=== PATIENT | male | born 1970 | race Caucasian/White ===

== ENCOUNTER 2023-03-15 09:15 | Emergency (ER) | payer BC, OTHER, SELFPAY ==
[2023-03-15 09:17] VITALS: BP 148/98; PULSE 77; RESP 20; TEMP 36.4; O2SAT 97; BMI 24.3
--- NOTE | 2023-03-15 09:27 | VDLE_ITS ---
Reason For Study: Pain RIGHT LEFT CFV is compressible, spontaneous, competent GSV is normal. and demonstrates pulsatile venous flow. CFV is compressible, spontaneous, competent, Procedure and demonstrates pulsatile venous flow. This is a venous duplex using B-mode, color FV is compressible, spontaneous, phasic, flow and spectral Doppler. competent and demonstrates normal Exam performed portable in ED. augmentation. A preliminary report was called and/or faxed POP V is compressible, spontaneous, phasic, to Dr. De Leon. competent and demonstrates normal augmentation. T/P Trunk is compressible. PTV is compressible. LT PerV is compressible. VL/Venous Duplex US, Unilateral Interpretation Summary There is no evidence of left lower extremity deep vein thrombosis. Left great s aphenous vein appears patent and compressible segmentally. Patent and compressible right common femor al vein Pulsatile venous flow was noted bilaterally consistent with proximal venous hyp ertension or obstruction. Clinical correlation would be appropriate. Ordering Physician: Maico De Leon Performed By: Gwendolyn Quan RVT
--- NOTE | 2023-03-15 09:27 | EKG12_ITS ---
Test Reason : Blood Pressure : / mmHG Vent. Rate : 074 BPM Atrial Rate : 074 BPM P-R Int : 174 ms QRS Dur : 086 ms QT Int : 350 ms P-R-T Axes : 069 041 070 degrees QTc Int : 388 ms Normal sinus rhythm with sinus arrhythmia Normal ECG Confirmed by DICKSON NGUYEN, MACRINA ([id number]), staff editor [place] GALVAN ([id number]) on 03/18/2023 11:03:00 AM Referred By: Maico De Leon Confirmed By:MACRINA FORMAN MD
--- NOTE | 2023-03-15 09:29 | ED.VIS.CHEST ---
HPI History of Present Illness Chief Complaint: Chest Pain Detail of Chief Complaint: Palpitations accelerated heart rate. Really no chest pain. Informant: patient Onset/Context/Timing Onset: Today and Hours Activity at onset: sudden Timing: Intermittent Current Severity: Gone Maximum Severity: Mild Narrative Narrative: 52-year-old history of high cholesterol. Prior kidney stones. States for the last month he has had proximal medial left thigh and hamstring discomfort. He is never had a DVT or PE. There is no swelling. 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 He also recently drove to and from [place] within the last month. He denies any chest pain. Today said he was at work and he felt palpitations and accelerated heart rate was not feeling well came in to get evaluated. States never had any cardiac history. He is not treated for hypertension. Prior Similar Symptoms: No Recent Illness/Hospitalization: No CVD Risk Factors: Positive for Hypercholesterolemia; Negative for Hypertension, Diabetes, Family History 1' </=55 or Smoking PE Risk Factors: Positive for Recent Travel/Surgery; Negative for Recent Immobilization, Prior DVT or PE, Cancer or OCP + Smoking + >/=35 TAD Risk Factors: Negative for Marfan's Syndrome PFSH PFSH Medical History no medical history Social History Smoking Status: Unknown if ever smoked ROS ROS ED ROS Narrative Denies recent illness. Review of Systems ROS Unobtainable: Denies due to encephalopathy Constitutional Constitutional ED: Denies chills or fever(s) Eyes Eyes: Reports none ENT ENT ED: Denies ear pain Cardiovascular Cardiovascular: Reports as per HPI, palpitations and racing heartbeat; Denies chest pain Respiratory/Chest Respiratory/Chest: Denies cough or dyspnea Gastrointestinal Gastrointestinal: Denies abdominal pain, constipation, diarrhea, melena, nausea or vomiting Genitourinary Genitourinary ED: Denies dysuria or hematuria Musculoskeletal Musculoskeletal: Denies arthralgias Integumentary Denies abscess Neurologic Neurologic: Denies headache(s) Psychiatric Psychiatric: Denies anxiety or depression Endocrine Endocrinology: Denies cold intolerance Hematologic/Lymphatic Hematologic/Lymphatic: Denies easy bleeding Allergic/Immunologic Allergic/Immunologic ED: Denies mouth swelling EXAM Physical Exam Narrative Exam Narrative: 52-year-old male no acute distress. Vital signs stable afebrile. Pulse ox 97% on room air no signs hypoxia. H EENT exam unremarkable. Neck nontender no JVD. Lungs clear to auscultation bilaterally. Heart regular rate and rhythm rate about 75 no murmur. Chest wall nontender. Abdomen soft nontender. Back nontender. Moving all 4 extremities. Calves are nontender without edema or cords. Normal DP pulse. His left medial thigh and hamstring there is no tenderness. No swelling. No redness. No cord. No inguinal lymphadenopathy. Normal range of motion of the hip and knee and ankle. Neurologically is awake alert with no focal motor deficits. Const Vital Signs: 03/15/23 09:17 03/15/23 09:37 Temperature 97.6 F L Temperature Source Temporal Pulse Rate 77 Respiratory Rate 20 H Blood Pressure 148/98 H Blood Pressure Mean 114 Pulse Ox 97 Oxygen Delivery Method Room Air Room Air Positive well nourished and well developed; Negative for obese, cachectic, contractures or unkempt General Appearance ED: well developed and NAD; Negative for unkempt, cachectic, contractures or pallor Nutritional Appearance: Negative for cachectic or obese HEENT Reports moist mucous membranes normocephalic and atraumatic; Negative for trauma or tenderness Eyes PERRL and EOMs intact bilaterally General Eye ED: Negative for pale conjunctiva or scleral icterus Neck no lymphadenopathy, supple and no JVD General: Negative for tenderness Chest Wall inspection of chest normal and palpation of chest normal Chest: Negative for tenderness Resp normal respiratory effort and clear to auscultation bilaterally Effort and Inspection: Negative for respiratory distress Auscultation: Negative for rales, rhonchi or wheezes Cardio regular rate, regular rhythm, S1 normal heart sound, S2 normal heart sound and no murmurs Rate: Negative for bradycardia or tachycardic Rhythm: Negative for abnormal rhythm Peripheral Pulses: pulses 2+ throughout GI normal to inspection, nondistended, normoactive bowel sounds, soft to palpation, non-tender, non-distended and no masses Auscultation: Negative for hyperactive bowel sounds Palpation: Negative for splenomegaly Back/Spine no CVA tenderness and no thoracic nor lumbar tenderness General Back: Negative for CVA tenderness Cervical Spine: Negative for cervical spine tenderness Extremity normal to inspection General Extremety ED: Negative for edema, pulses abnormal or tenderness General Extremity: Negative for edema or pulses abnormal Neuro oriented x3, CN's II-XII intact bilaterally and no sensory deficits noted Sensorium / Orientation: awake, alert, oriented to person, oriented to place and oriented to time; Negative for confused or lethargic Motor Exam: strength 5/5 throughout Psych Appearance: Negative for unkempt Attitude: No agitated Mood & Affect: Negative for depressed, anxious or tearful Skin no rashes or lesions noted and no wounds General Skin Exam: Negative for jaundice, pallor or other Rashes: No rashes noted Trauma: Negative for abrasion or laceration MDM MDM MDM Narrative Medical decision making narrative: 52-year-old male recent travel and left proximal thigh and hamstring pain. Undergo cardiac work-up clinically told it is cardiac. Also a ultrasound of his left leg to make sure he did not have a DVT. He has had recent travel to and from [place]. His exam is completely benign. The leg is nontender without any signs of infection or blood clot. Repeat exam patient doing well at 10:21 AM. We went over his test results. Exam unchanged. Heart and lungs are clear. He feels good. We discharged home with outpatient follow-up. History & Record Review Discussion w/independent historian: Patient Additional record(s) reviewed:: No prior records Lab Data Attestation: I reviewed the patient's lab results. Lab results narrative: CBC unremarkable. White count of 5. H&H 15 and 46. Platelets 215. Chest x-ray normal. Chemistry is unremarkable gap of 2. Normal BUN and creatinine. Glucose 125. Troponin normal at 4. TSH normal 3.1. D-dimer is negative at 0.4. Venous study of his leg was negative no DVT. Labs: Laboratory Results - last 24 hr 03/15/23 03/15/23 03/15/23 09:15 09:15 09:15 WBC 5.0 RBC 5.52 Hgb 15.7 Hct 46.1 MCV 83.5 MCH 28.4 MCHC 34.1 RDW Std Deviation 36.8 RDW Coeff of Pippa 12.1 Plt Count 215 MPV 9.4 Immature Gran % (Auto) 0.200 Neut % (Auto) 58.5 Lymph % (Auto) 30.4 Mcdonald % (Auto) 6.7 Eos % (Auto) 3.4 Baso % (Auto) 0.8 Absolute Neuts (auto) 2.9 Absolute Lymphs (auto) 1.51 Nucleated RBC % 0 D-Dimer Quant (PE/DVT) 0.40 Sodium 138 Potassium 3.9 Chloride 107 Carbon Dioxide 29.0 Anion Gap 2 L BUN 15 Creatinine 0.98 Estim Creat Clear Calc 84.31 Est GFR (MDRD) Af Amer 104 Est GFR (MDRD) Non-Af 86 BUN/Creatinine Ratio 15.3 Glucose 125 H Calcium 9.5 Troponin I High Sens 4 TSH 3.10 Radiography Chest X-Ray - ED: 1 View, Read by ED Physician, Normal, Heart, Lungs, Mediastinum, Bony Structures, No Acute Disease and Chronic Changes Diagnostic Testing: Clinical Impression(s) from Imaging Studies Chest X-Ray 03/15/23 09:40 IMPRESSION: Normal x-ray examination of the chest. Electronically Signed: Juan Jose Parra MD at 10:05 EDT , Chest x-ray, portable, single view, interpreted by myself shows no acute abnormality. Normal cardiac silhouette. Normal lung robison. Normal mediastinum. Interpreted also by the radiologist who agrees. Rhythm Strip Rhythm Strip: Sinus Rhythm Rate: 74 Ectopy: None EKG Initial EKG: Attestation: I personally reviewed and interpreted this EKG as follows: Interpretation: Sinus Rhythm and No Acute Injury Pattern Comments: Normal sinus rhythm rate of 74 no acute signs of ID or ischemia. Discharge Plan Triage Chief Complaint: Chest Pain ED Provider: Maico De Leon Dx/Rx/DC Orders Clinical Impression: Palpitations Instructions: ED Palpitations Primary Care Provider: LE HERRERA Referrals: LE HERRERA [Other] Activity Restrictions/Additional Instructions: Labs including blood count, electrolytes, kidney function, blood sugar, thyroid test, heart enzyme and blood clot test were all normal. Your chest x-ray and EKG were normal. The ultrasound of your left leg was normal and showed no blood clot. Follow-up with your primary care physician as needed. Disposition Disposition: Home, Self Care
[2023-03-15 09:37] LABS: Absolute Lymphocyte Count 1.51 X10^3/uL (0.83-4.51); Absolute Neutrophil Count 2.9 X10^3/uL (2.0-7.7); Basophil# 0.04 X10^3/uL; Basophil% 0.8 % (0-1); Eosinophil# 0.17 X10^3/uL; Eosinophils% 3.4 % (0-5); Hematocrit 46.1 % (40-54); Hemoglobin 15.7 g/dL (13.0-16.5); Lymphocyte # 1.51 X10^3/ul (0.83-4.51); Lymphocyte % 30.4 % (19-41); Mean Corp Hgb Conc 34.1 g/dL (32-36); Mean Corpuscular Hgb 28.4 pg (27.0-32.0); Mean Corpuscular Volume 83.5 fL (80-94); Mean Platelet Vol. 9.4 fl (6.2-12.0); Monocyte# 0.33 X10^3/uL; Monocyte% 6.7 % (0-10); NRBC Flagged by Analyzer 0 % (0-5); Neutrophil % 58.5 % (47-70); Platelet Count 215 K/mm3 (150-450); RBC Distribution Width CV 12.1 % (11.6-14.6); RBC Distribution Width SD 36.8 fl (35.1-43.9); Red Blood Count 5.52 M/mm3 (4.6-6.2)
--- NOTE | 2023-03-15 09:40 | RAD_ITS ---
STUDY: X-RAY CHEST REASON FOR EXAM: Male, 52 years old. There are no and left arm pain. TECHNIQUE: Single AP portable view of the chest. COMPARISON: None. FINDINGS: EKG electrodes are seen. The lungs are clear and expanded. There is no demonstrated pleural abnormality. Normal size heart. Normal mediastinum and park. Normal visualized pulmonary arteries. Normal visualized aortic arch and descending thoracic aorta. Normal visualized thoracic spine. Normal visualized ribs, clavicles, and shoulders. There is no demonstrated abnormality of the visualized soft tissue structures of the upper abdomen. RAD/Chest 1 View (Portable) IMPRESSION: Normal x-ray examination of the chest. Electronically Signed: Juan Jose Parra MD at 10:05 EDT ,
[2023-03-15 10:03] LABS: Anion Gap 2 (5-15); BUN 15 mg/dL (7-18); BUN/Creat Ratio 15.3 RATIO (10-20); Calcium,Total 9.5 mg/dL (8.5-10.1); Chloride 107 mmol/L (98-107); Creatinine, Serum 0.98 mg/dL (0.70-1.30); EST Glomerular Filtration Rate 86 mL/min (>60); Est Glom Filt Rate - Afr Amer 104 mL/min (>60); Estimated Creatinine Clearance 84.31 ml/min; Glucose 125 mg/dL (74-106); Potassium 3.9 mmol/L (3.5-5.1); Sodium Level 138 mmol/L (136-145); Troponin-I HS 4 pg/mL (3.0-78.0)
[2023-03-15 10:34] VITALS: RESP 18
== END 2023-03-15 10:35 | disposition home or self-care (01) ==
PROVIDERS: Emergency Provider Emergency Medicine; Referring Provider Emergency Medicine; Visit Provider Emergency Medicine
DX: R00.2 Palpitations (principal); M79.652 Pain in left thigh; E78.00 Pure hypercholesterolemia, unspecified; Z87.442 Personal history of urinary calculi
CPT/HCPCS: 71045; 80048; 84443; 84484; 85025; 85379; 93005; 93971; 99284; A4216